=== PATIENT | male | born 1950 | race Caucasian/White ===

== ENCOUNTER 2021-05-21 22:35 | Emergency (ER) | payer SELFPAY ==
[~2021-05-21] VITALS: Ht 134.6 cm; Wt 90.0 kg
[2021-05-21 23:55] VITALS: BP 105/61
== END 2021-05-22 02:17 | disposition home or self-care (01) ==
LOC: ED 05-22 01:40
DX: N39.0 Urinary tract infection, site not specified (principal); R10.84 Generalized abdominal pain; R11.0 Nausea; E11.9 Type 2 diabetes mellitus without complications; F17.210 Nicotine dependence, cigarettes, uncomplicated; Z72.9 Problem related to lifestyle, unspecified
CPT/HCPCS: 36415; 80053; 81001; 82010; 83690; 85025; 87077; 87086; 87147; 87186; 99283; 99406; Q0162